=== PATIENT | female | born 1990 | race Caucasian/White ===

== ENCOUNTER 2018-11-11 14:10 | Emergency (ER) | payer MEDICAID ==
[~2018-11-11] VITALS: Wt 66.0 kg
[2018-11-11 14:17] VITALS: BP 130/71; PULSE 88; RESP 18
--- NOTE | 2018-11-11 18:16 | ERD ---
ER Documentation Chief Complaint Chief Complaint VAG BLEEDING SINCE THIS MORNING. NO N/V. LOWER ABD CRAMPING. HPI 28-year-old female presenting to the emergency department complaining of mild vaginal bleeding and pelvic pain which began earlier today. She is G2, . Her last menstrual cycle was on 10/05/2019. She has not yet had an ultrasound during this . She does not have an HYDROMETEOROLOGICAL TECHNICIAN physician. She denies any fevers, chills, abdominal pain, fevers, chills, or other symptoms at this time. ROS All systems reviewed and are negative except as per history of present illness. PMhx/Soc Medical and Surgical Hx: pt denies Medical Hx, pt denies Surgical Hx Hx Alcohol Use: No Hx Substance Use: No Hx Tobacco Use: No Smoking Status: Never smoker FmHx Family History: No diabetes Physical Exam Vitals Vital Signs Date Temp Pulse Resp B/P (MAP) Pulse Ox O2 O2 Flow FiO2 Time Delivery Rate 11/11/18 98.1 88 18 130/71 99 14:17 (90) Physical Exam Const: No acute distress Head: Atraumatic Eyes: Normal Conjunctiva ENT: Normal External Ears, Nose and Mouth. Neck: Full range of motion. No meningismus. Resp: Clear to auscultation bilaterally Cardio: Regular rate and rhythm, no murmurs Abd: Soft, non tender, non distended. Normal bowel sounds. Mild pelvic tenderness palpation bilaterally. No rebound tenderness or guarding. No McBurney's point tenderness. Skin: No petechiae or rashes Back: No midline or flank tenderness Ext: No cyanosis, or edema Neur: Awake and alert Psych: Normal Mood and Affect Result Diagram: 11/11/18 1517 Results 24 hrs Laboratory Tests Test 11/11/18 15:17 White Blood Count 11.7 10^3/ul Red Blood Count 4.97 10^6/ul Hemoglobin 13.6 g/dl Hematocrit 41.5 % Mean Corpuscular Volume 83.5 fl Mean Corpuscular Hemoglobin 27.4 pg Mean Corpuscular Hemoglobin Concent 32.8 g/dl Red Cell Distribution Width 13.2 % Platelet Count 323 10^3/UL Mean Platelet Volume 10.0 fl Immature Granulocytes % 0.300 % Neutrophils % 72.2 % Lymphocytes % 20.3 % Monocytes % 6.4 % Eosinophils % 0.6 % Basophils % 0.2 % Nucleated Red Blood Cells % 0.0 /100WBC Immature Granulocytes # 0.040 10^3/ul Neutrophils # 8.4 10^3/ul Lymphocytes # 2.4 10^3/ul Monocytes # 0.7 10^3/ul Eosinophils # 0.1 10^3/ul Basophils # 0.0 10^3/ul Nucleated Red Blood Cells # 0.0 10^3/ul Urine Color YELLOW Urine Clarity SLIGHTLY CLOUDY Urine pH 6.0 Urine Specific Hyndman 1.009 Urine Ketones NEGATIVE mg/dL Urine Nitrite NEGATIVE mg/dL Urine Bilirubin NEGATIVE mg/dL Urine Urobilinogen NEGATIVE mg/dL Urine Leukocyte Esterase TRACE Delonte/ul Urine Microscopic RBC 169 /HPF Urine Microscopic WBC 15 /HPF Urine Squamous Epithelial Cells FEW /HPF Urine Bacteria FEW /HPF Urine Hemoglobin 3+ mg/dL Urine Glucose NEGATIVE mg/dL Urine Total Protein NEGATIVE mg/dl Beta HCG, Quantitative 5.8 mIU/ml [place] [id number] Radiology Main Line: [phone] DIAGNOSTIC IMAGING REPORT Patient: LILY GARCIA : 1990 Age: 28 Sex: F MR #: [id number] DOS: 11/11/18 1454 Ordering MD: JERARDO MURO PA-C Location: [facility] Room/Bed: PROCEDURE: US Pelvis. CLINICAL INDICATION: vaginal bleeding TECHNIQUE: Multiple sonographic images of the pelvis were obtained utilizing a transabdominal technique. The images were reviewed on a PACS workstation. The patient refused transvaginal examination. COMPARISON: None. FINDINGS: The study is very limited. The uterus is not well seen. The endometrium is not visualized. No intrauterine gestation is noted. The left ovary was not seen. The right ovary is questionably visualized and measures 2.3 x 2.0 x 2.6 cm. No free fluid is present within the pelvis.. RPTAT: AA IMPRESSION: Extremity limited study. Uterus is not well seen. Endometrium is not visualized. No intrauterine gestation visualized. Differential diagnosis includes early , missed or ectopic . Follow-up ultrasound and HCG levels is recommended. .Jason Poole MD, MD Date Time Electronically viewed and signed by .Jason oPole MD, MD on 11/11/2018 15:37 .S/ CC: MURORUSS SHELTON Nery CHINO [phone] Procedures/MDM 28-year-old female presenting to the emergency department complaints of vaginal bleeding. Her last menstrual cycle was 10/04/2017. Ultrasound did not visualize an intrauterine . Beta hCG was 5. History, physical examination, and work-up is most consistent with missed . Patient was advised to have 2 to 3-day follow-up with her HYDROMETEOROLOGICAL TECHNICIAN physician or return here for repeat beta-hCG and ultrasound. Suspicion for ectopic is extremely low at this time, due to b eta hCG of 5, however she was advised that if pain or bleeding continues or worsens she should return to the department immediately. She was in agreement with the diagnosis, plan, need for follow-up, return precautions. Low suspicion for ectopic , tubo-ovarian abscess, ovarian torsion, PID, or other emergencies at this time. Departure Diagnosis: Primary Impression: Vaginal bleeding in patient at less than 20 weeks ges... Condition: Fair Patient Instructions: Bleeding During Early Referrals: HYDROMETEOROLOGICAL TECHNICIAN [place] [id number] [facility] [address] [place], [place] [phone] OFFICE [address] [facility] [address] [place] [place] [phone] [place] [address] [place] [place] [phone] [facility] [id number] [facility] [address] [place] [phone] [address] [address] [place] [place] [phone] [facility] [address] [place], [place] [phone] [address] [facility], [facility] [id number] - [address]GE[address] [facility] [address] [address] [place] [address] [facility]. [address], [facility] [address] [address], [facility] [address] [place] [address] Additional Instructions: SPECIALIST: YOU HAVE A MEDICAL CONDITION WHICH REQUIRES YOU TO SEE A SPECIALIST WITHIN THE NEXT 1-2 DAYS. PLEASE FOLLOW UP WITH YOUR PRIMARY PHYSICIAN FOR REFFERAL.IF YOU DO NOT HAVE A PRIMARY CARE PHYSICIAN AND/OR YOU CAN NOT AFFORD TO SEE A PHYSICIAN THE FOLLOWING RESOURCES HAVE BEEN SUPPLIED TO YOU. IT IS YOUR RESPONSIBILITY TO BE SEEN BY THE SPECIALIST: ECTOR WESTON PA-C November 11, 2018 18:16
== END 2018-11-11 16:36 | disposition home or self-care (01) ==
LOC: FTE 14:10
DX: O20.9 Hemorrhage in early pregnancy, unspecified (principal); R10.2 Pelvic and perineal pain; Z3A.00 Weeks of gestation of pregnancy not specified
CPT/HCPCS: 76801; 81001; 84702; 85025; 86900; 86901; Z7502